=== PATIENT | female | born 1995 | race Hispanic/Latino ===

== ENCOUNTER 2021-11-22 12:27 | Outpatient (CLI) | payer BC ==
[2021-11-22 14:40] LABS: #Eosinphils 0.2 10x3/uL (0.0-0.5); #Monocytes 0.7 10x3/uL (0.0-1.1); #Neutrophils 4.3 10x3/uL (1.5-8.4); %Basophils 0.5 % (0.0-2.0); %Eosinophils 2.3 % (0.0-6.0); %Lymphocytes 33.8 % (18.0-47.0); %Monocytes 8.7 % (0.0-10.0); %Neutrophils 54.4 % (40.0-75.0); Hemoglobin 13.8 g/dL (12.0-15.5); Mean Corpuscular HGB CONC 34.4 g/dL (32.0-36.0); Mean Corpuscular Hemoglobin 29.6 pg (27.0-33.0); Mean Corpuscular Volume 86.1 fl (81.6-98.3); Mean Platelet Volume 9.5 fl (7.4-10.4); Platelet Count 340 10x3/uL (150-450); RBC Distribution Width 12.5 % (11.5-14.5); Red Blood Cell (RBC) Count 4.66 10x6/uL (3.90-5.03); White Blood Cell (WBC) Count 7.9 10x3/uL (3.5-10.5)
[2021-11-22 15:02] LABS: ALT (SGPT) 13 U/L (8-55); AST (SGOT) 15 U/L (5-34); Albumin 4.3 g/dL (3.5-5.0); Alkaline Phosphatase 61 U/L (40-110); Anion Gap 12 mmol/L (10-20); BUN (Urea Nitrogen) 10 mg/dL (7.0-18.7); Bilirubin, Direct 0.2 mg/dL (0.1-0.3); Bilirubin, Total 0.5 mg/dL (0.2-1.2); Calc. Creatinine Clearance 0 mL/min (70-130); Carbon Dioxide 27 mmol/L (22-29); Chloride 104 mmol/L (98-107); Glucose 81 mg/dL (70-105); Potassium 4.6 mmol/L (3.5-5.1); Protein, Total 7.3 g/dL (6.0-8.3); Sodium 138 mmol/L (136-145)
[2021-11-24 00:05] LABS: SARS-CoV-2 PCR by NAA Not Detected (NotDetected)
== END 2021-11-22 12:28 | disposition home or self-care (01) ==
LOC: LABBT 12:27
PROVIDERS: ATTEND Surgery
DX: Z01.812 Encounter for preprocedural laboratory examination (principal); K80.20 Calculus of gallbladder without cholecystitis without obstruction; Z20.822 Contact with and (suspected) exposure to COVID-19
CPT/HCPCS: 80048; 80076; 85025; U0003; U0005

== ENCOUNTER 2021-11-26 10:37 | Day surgery (SDC) | payer BC ==
[2021-11-22 11:50] VITALS: BMI 30.2
[2021-11-26] MEDS ORDERED: Midazolam HCl 2 mg/2 ml Vial ONE (11:50)
[2021-11-26] MEDS ORDERED: Xylocaine 1% w/ Epi 1:100K 10 ML VIAL ONE (12:03)
[2021-11-26] MEDS ORDERED: Bupivacaine 0.25% HCL 30 ML VIAL ONE (12:03)
[2021-11-26] MEDS ORDERED: Fentanyl 100 MCG/2 ML VIAL ONE ×3 (12:07→13:55)
[2021-11-26] MEDS ORDERED: ceFAZolin 2 GM/Dextrose 50 ML IVPB ONE (12:19)
[2021-11-26] MEDS ORDERED: Glycopyrrolate 0.2 MG/ML 5 ML SYRINGE ONE (12:34)
[2021-11-26] MEDS ORDERED: Dexamethasone 20 MG/5 ML VIAL ONE (12:34)
[2021-11-26] MEDS ORDERED: Lidocaine 1% PF 5 ML VIAL ONE (12:34)
[2021-11-26] MEDS ORDERED: Ketorolac Tromethamine 30 MG/ML VIAL ONE (12:34)
[2021-11-26] MEDS ORDERED: Ondansetron PF 4 MG/2 ML Vial ONE (12:34)
[2021-11-26] MEDS ORDERED: Rocuronium Bromide 10 MG/ML (10ML VIAL) ONE (12:34)
[2021-11-26] MEDS ORDERED: PROPOFOL 200 MG/20 ML VIAL ONE (12:34)
[2021-11-26] MEDS ORDERED: HYDROcodone/Acetaminophen 5/325 mg Tablet ONE (14:25)
== END 2021-11-26 15:20 | disposition home or self-care (01) ==
LOC: SDC 10:37
PROVIDERS: ATTEND Surgery
PROC: 0FT44ZZ Resection of Gallbladder, Percutaneous Endoscopic Approach (ICD-10-PCS; principal; 2021-11-26)
DX: K80.10 Calculus of gallbladder with chronic cholecystitis without obstruction (principal); E03.9 Hypothyroidism, unspecified; E66.9 Obesity, unspecified; Z68.30 Body mass index [BMI] 30.0-30.9, adult; Z86.16 Personal history of COVID-19; Z79.899 Other long term (current) drug therapy
CPT/HCPCS: 88304; C1713; J0690; J1100; J1885; J2250; J2405; J2704; J3010; S0020